=== PATIENT | male | born 1960 | race Caucasian/White ===

== ENCOUNTER 2020-05-14 00:45 | Outpatient (CLI) | payer MEDICAID, SELFPAY ==
--- NOTE | 2020-05-14 07:37 | DI.MRI_ITS ---
EXAM: MR UPPER JOINT RT WO CLINICAL HISTORY: R SHOULDER PAIN, BICIPITAL TENDINITIS, M75.21. TECHNIQUE: Multiplanar multisequence MRI was performed. COMPARISON: MR MRI R UPPER JOINT WO CONT from 01/18/2015 CR RIGHT SHOULDER COMPLETE from 12/27/2015 FINDINGS: There is been a previous distal clavicular resection. A metallic anchor is seen in the anterior hu meral head. There is artifact in this area. The fat-suppressed T2 coronal and sagittal sequences ar e also limited by motion. The biceps tendon appears intact and normally positioned. There is a mini mal amount of fluid in the subacromial subdeltoid bursa. There is a question of high signal in the distal supraspinatus tendon which could indicate a partial tear or tendinitis. The infraspinatus, pagan bscapularis and teres minor tendons are unremarkable. No gross labral defects are seen. IMPRESSION: Limited exam secondary to metallic artifact and patient motion. The biceps tendon appears intact. T here is a question of supraspinatus tendinosis versus partial tear. DATA REPOSITORY:
== END 2020-05-14 01:05 ==
PROVIDERS: PCP Internal Medicine; Visit Provider Orthopaedic Surgery
DX: M25.511 Pain in right shoulder (principal); M75.21 Bicipital tendinitis, right shoulder
CPT/HCPCS: 73221

== ENCOUNTER 2021-05-14 15:04 | Outpatient (CLI) | payer MEDICAID, SELFPAY ==
--- NOTE | 2021-05-14 15:00 | DI.RAD_ITS ---
Exam(s) XR SHOULDER RT COMPLETE 2+V EXAM: XR SHOULDER RT COMPLETE 2+V CLINICAL HISTORY: F/U. TECHNIQUE: 2D digital imaging was performed. COMPARISON: No exams were available for comparison FINDINGS: BONES: No acute fracture is present. No bony destructive lesion is seen. There is an orthopedic anch or in the humeral head. JOINTS: No dislocation present. Degenerative changes are seen at the acromioclavicular joint. SOFT TISSUE: Normal. IMPRESSION: No acute abnormality. DATA REPOSITORY: RADIATION DOSE DELIVERED:
== END 2021-05-14 15:05 | disposition home or self-care (01) ==
LOC: DIORS 15:04
PROVIDERS: PCP Internal Medicine; Referring Provider Internal Medicine; Visit Provider Student in an Organized Health Care Education/Training Program
DX: M75.101 Unspecified rotator cuff tear or rupture of right shoulder, not specified as traumatic (principal)
CPT/HCPCS: 73030

== ENCOUNTER 2021-08-28 01:55 | Outpatient (CLI) | payer MEDICAID, SELFPAY ==
[2021-08-28 13:03] LABS: Source Nasal/Nares
[2021-08-28 23:13] LABS: COVID-19 PCR Negative (Negative)
== END 2021-08-28 01:56 | disposition home or self-care (01) ==
LOC: LBO 01:55
PROVIDERS: PCP Internal Medicine; Visit Provider Student in an Organized Health Care Education/Training Program
DX: Z20.822 Contact with and (suspected) exposure to COVID-19 (principal); Z01.818 Encounter for other preprocedural examination
CPT/HCPCS: 87635

== ENCOUNTER 2021-08-30 09:47 | Day surgery (SDC) | payer MEDICAID, SELFPAY ==
[2021-08-30] VITALS (10 sets, daily range): BP systolic 84–131; BP diastolic 51–81; PULSE 47–62; RESP 15–26; TEMP 36–36.6; O2SAT 92–97; BMI 31.5
--- NOTE | 2021-08-30 06:34 | ANES.PREOP_ITS ---
General Info Date of Service Date Performed: 08/30/21 Height: 5 ft 11 in Weight: 102.512 kg Body Mass Index (BMI): 31.5 Surgical Procedure: Operation Date: 08/30/21 10:10 Proposed Procedures Side Surgeon p shoulder arthroscopy with extensive debridement, subacromial decompression, exc distal clavicle, possible rotator cuff Right Navneet Sneed MD s Shoulder Bicep Tenodesis Right Navneet Sneed MD Meds Allergies and Home Medications Allergies Allergy/AdvReac Type Severity Reaction Status Date / Time codeine AdvReac VISUAL Unverified 08/30/21 10:31 HALLUCINATION/BLACKOUT/DIZZY Home Medication Medication Instructions Recorded lorazepam [Ativan] 0.5 mg PO PRN 04/26/15 ibuprofen 400 mg PO Q4H PRN tab-cap 02/06/16 acetaminophen 1,000 mg PO Q6H PRN 08/30/21 Current Visit Medications: Current Medications Generic Name Dose Route Start Last Admin Trade Name Freq PRN Reason Stop Dose Admin Ringer's Solution 1,000 mls @ 100 mls/hr 08/30/21 06:00 IV 09/28/21 23:59 INFUSION RY Cefazolin Sodium/Dextrose 2 gm in 50 mls @ 100 mls/hr 08/30/21 06:00 Ancef Duplex IVPB 08/30/21 16:00 PREOP RY IV Miscellaneous Supplies 1 each 08/30/21 06:00 Iv Access IV 09/28/21 23:59 DIRECTED RY Sodium Chloride 0 ml 08/30/21 06:00 Normal Saline Flush 10 Ml Syr IV 09/28/21 23:59 PRN PRN Sodium Chloride 0 ml 08/30/21 06:00 Normal Saline 10 Ml Vial IJ 09/28/21 23:59 DIRECTED PRN Sterile Water 0 ml 08/30/21 06:00 Water,Injection,Sterile 10 Ml Vial IJ 09/28/21 23:59 DIRECTED PRN PFSH Active Problems Active Problems: Problem Status Onset Code Lateral epicondylitis of right elbow M77.11 Carpal tunnel syndrome of right wrist G56.01 Tendonitis of long head of biceps brachii of right shoulder M75.21 Bursitis of right shoulder M75.51 No-show for appointment Z53.29 Rotator cuff tear, right M75.101 Medical History Medical History Hypertension Surgical History Surgical History (Updated 08/30/21 @ 10:35 by Jahaira Beasley RN) Hx of hernia repair x2 Hx of neck surgery goiter Hx of shoulder surgery b/l x 1 each so far Tobacco Smoking/Tobacco Use Status: Former Tobacco Use Alcohol Alcohol Intake: current Alcohol intake frequency: a few times a month Substance Use Substance use: Never Vital Signs and Lab Results Vital Signs Most Recent Vital Signs in EMR: Temp Pulse Resp BP Pulse Ox 36.6 C 47 L 18 131/81 96 08/30/21 10:22 08/30/21 10:22 08/30/21 10:22 08/30/21 10:22 08/30/21 10:22 Lab Results Blood Type / Crossmatch: No Data to Display Complete Blood Count: No Data to Display Complete Metabolic Panel: No Data to Display Liver Function Panel: No Data to Display Coagulation Panel: No Data to Display Cardiac Panel: No Data to Display Arterial Blood Gas: No Data to Display Venous Blood Gas: No Data to Display Pancreas Panel: No Data to Display Thyroid Panel: No Data to Display Infectious Disease: Coronavirus (COVID-19)(PCR) Negative (Negative) 08/28/21 11:26 08/28/21 Coronavirus 2019 Source Nasal/Nares 08/28/21 11:26 08/28/21 Blood Cultures: No Data to Display Toxicology Panel: No Data to Display Anesthesia Assessment and Plan Anesthesia History Personal History: No History of Anesthesia Complications Family History: No Family History of Anesthesia Complications Exercise Tolerance Exercise Tolerance: Metabolic Equivalents>4 Cardiac & Pulmonary Exam Cardiac Exam: Normal S1/S2 Heart Sounds Pulmonary Exam: Clear Bilateral Breath Sounds Airway Exam Known Difficult Airway: No Mallampati Class: 2 Mouth Opening: Narrow (< 3cm) Thyromental Distance: Greater than 3 cm Neck Range of Motion: Limited ROM Neck Circumference: Normal Teeth Condition: Normal Dentition ASA Classification ASA Score: ASA 2 Emergency Case?: No NPO Status NPO Status: NPO Clears >2 hours, Solids >8 hours Anesthesia Plan Resuscitation Status: Full Code Anesthesia Technique: General Anesthesia Airway Planned: Endotracheal Tube Pain Management: Surgeon and patient request nerve block Monitors Used: Standard Monitors Preoperative Comments:: 61 yo male for right shoulder scope. Sig PMHx: former smoker, occ EtOH, HTN (amlodipine/metoprolol),catap krishan/narcolepsy. Previous anes: LMA 5, ISB without issues. Plan: [facility].
[2021-08-30] MEDS: Lactated Ringers 1,000 ML 100 ML IV (10:36)
[2021-08-30] MEDS: ceFAZolin 2 GM/50 ML BAG IVPB (11:42)
--- NOTE | 2021-08-30 11:43 | W.ANESNERVE ---
Nerve Block Single Injection Procedure Date and Time Date Performed: 08/30/21 Procedure Start: 10:55 Location Where Procedure Performed Procedure Location: Day Surgery Unit Reason Performed: Postoperative Analgesia Requesting Provider: Navneet Sneed Timeout Performed Timeout Performed: Yes Monitoring Used ECG, Blood Pressure and SpO2 Sterility Sterility: Hand Hygiene, Surgical Cap, Surgical Mask and Sterile Drape/Sheet Sedation Given During Procedure Sedation Given (Indicate Dose Given): No Sedation given and Versed IV Dose:: 2 mg Patient Mental Status Patient Mental Status: Awake Nerve Block 1st Nerve Block: Laterality: Right Block Type: Interscalene Needle / Catheter Used: 100mm SonoPlex II Local Anesthetic Bolus (Indicate Dose Given): Injected in 3-5ml increments after negative blood aspiration, Bupivacaine 0.5% Dose:: 12 mL and Exparel Dose:: 10 mL Additives (Indicate Dose Given): None Ultrasound: Sterile probe cover and gel used Ultrasound Image Saved?: Yes Nerve Stimulator: Not Used Paresthesia: None Procedure Tolerated: No Complications Procedure Outcome: Successful Procedure Comment: complicated anatomy, very vascular on path to IS groove, negative aspiration throughout. Performed By: Sree Cummings
[2021-08-30] MEDS: EPINEPHrine 30 MG/30 ML VIAL (13:00)
--- NOTE | 2021-08-30 13:26 | W.PM.DSUDISC ---
Discharge Plan Disposition Patient Disposition: HOME Condition: Stable Discharge Details Reason For Visit: Right shoulder surgery Attending Provider: Navneet Sneed Primary Care Provider: Laura Fajardo Home Meds and New Rx's Prescriptions: New aspirin 81 mg tablet,delayed release (DR/EC) 81 mg PO DAILY 14 Days Qty: 14 RF: 0 naproxen 250 mg tablet 250 - 500 mg PO BID PRN (Reason: Moderate pain or swelling) Qty: 40 RF: 0 oxycodone 5 mg tablet 5 - 10 mg PO Q4H PRN (Reason: moderate to severe pain) Qty: 16 RF: 0 Continued lorazepam [Ativan] 0.5 MG tablet 0.5 mg PO PRN RF: 0 ibuprofen 200 MG capsule 400 mg PO Q4H PRN RF: 0 acetaminophen 500 mg Tablet 1,000 mg PO Q6H PRNRF: 0 Discharge Instructions Additional Instructions: Surgery: Right shoulder arthroscopy with revision extensive debridement, subacromial decompression, and distal clavicle excision. Activity: You should gradually increase range of motion motion and use of your shoulder. Please perform daily motion exercises. You may use your shoulder for all regular activities. Avoid heavy lifting, reaching overhead, and lifting away from body for approximately 6 to 8 weeks. You may use the sling whenever you are out of the house for a few weeks. At home it is best to remove the sling and rest the arm on a pillow at your side or support the operative side with your other hand. A physical therapy prescription will be sent electronically to start in about 2 weeks. Prescriptions: Aspirin 81 mg take 1 daily to prevent a blood clot for 2 weeks Naproxen 250 mg take 1-2 every 12 hours with a meal as needed for moderate pain Oxycodone 5 mg take 1-2 every 4-6 hours as needed for severe pain You may use [id number] Tylenol (acetaminophen) as needed for mild pain. These pain medications may be taken all at once or in different combinations as needed. Also, recommend Colace (docusate) as a stool softener as surgery and pain medicine cause constipation. Dressings: Remove shoulder bandage after 3 days. Leave the sticky Steri-Strips in place until they fall off or remove them after you shower. Cover the incisions with Band-Aids or leave them open to air. You may shower after 5 days. Follow-up: 10-[address] Sneed You may take off the leg compression stockings this evening at home. You may also leave them on a few days longer if you have a history of leg swelling or edema. Let us know right away if you develop any redness, drainage, fevers, chest pain, or trouble breathing. Do not drink alcohol or drive for at least 24 hours after anesthesia. Please call the office during business hours with any questions or concerns. Referrals: Navneet Sneed MD [ [facility]FF PHYSICIAN] - DS: Diagnosis Discharge Diagnosis (1) Bursitis of right shoulder: Status: Acute (2) Tendonitis of long head of biceps brachii of right shoulder: Status: Acute (3) AC joint pain: Status: Acute (4) Rotator cuff tear, right: Status: Acute
--- NOTE | 2021-08-30 13:30 | ROE_ITS ---
Date of service: 08/30/21 Time of Service: 12:00 Operative Note Operative Note DATE OF PROCEDURE: 08/30/21 PRE-OP DIAGNOSIS: Right: 1. Rotator cuff tear 2. LHB tendinopathy 3. Bursitis 4. AC joint pain POST-OP DIAGNOSIS: same PROCEDURE: Right 1. Extensive debridement, CPT# 95361. This involved using arthroscopic hand instruments, power instruments, and radiofrequency instruments to debride SLAP tear, anterior and posterior partial labral tearing, partial articular supraspinatus rotator cuff tearing, chondromalacia about the bicipital groove, and anterior capsule synovitis. 2. Arthroscopic distal clavicle excision, CPT# 34480. This involved arthroscopically exposing the underside of the acromioclavicular joint, smoothing out bone spurs, and removing few millimeters of the acromion there was no significant impinging or engaging bone. 3. Subacromial decompression, CPT# 89607. This involved using arthroscopic power instruments and a radiofrequency wand to complete a bursectomy. The hygiene assistant was medically required in order to help assist in techniques above, which require positioning the arm, holding the arthroscope, and manipulating multiple instruments and sutures at the same time. This cannot be done without the help of an experienced hygiene assistant. SURGEON: Navneet Sneed PROTOTYPE ENGINEER: Leanne Kidd ANESTHESIA TYPE: General LMA/ETT and Primary Nerve Block Refer to Anesthesia Record ESTIMATED BLOOD LOSS: 5 PATHOLOGY: none sent COMPLICATIONS: None Patient was transported to: PACU Patient's condition: stable Implants: None Indications: The patient was diagnosed with the above conditions and appropriately indicated for surgical intervention. Please see complete medical record for details. Findings: Exam under anesthesia: Full, symmetrical range of motion. No instability or mechanical symptoms. Glenohumeral joint: Mild anterior posterior synovitis. Long head biceps previously tenodesed with no visible intra-articular segment. No significant stump or biceps anchor on superior labrum. SLAP tear with unstable superior labrum. Mild anterior posterior labral fraying. Mild anterior near bicipital groove chondromalacia. Intact subscapularis. Mild partial articular sided supraspinatus rotator cuff tear. Intact infraspinatus. No loose bodies. No significant capsular contracture. Subacromial space: Mild bursitis. No significant undersurface acromial bone spur. Minimal engaging proximal acromion on distal clavicle. No significant residual distal clavicle. Moderate AC joint hemorrhagic scar tissue. Mild but diffuse diffuse bursal fraying without any significant bursal rotator cuff tear. Procedure Description: In the operating room, general anesthesia was induced. Bilateral shoulders were examined. The patient was positioned in the beachchair position. All bony prominences were well-padded. Preoperative antibiotics were administered. The shoulder was prepped and draped in the usual sterile fashion. The correct patient, procedure, and side of the procedure were all verified prior to incision. Starting through the posterior portal a standard complete diagnostic arthroscopy was performed of the glenohumeral joint including inspection of the long head of the biceps, anterior and superior labrum, subscapularis tendon, supraspinatus and infraspinatus tendons, and axillary recess. The glenoid and humeral head cartilage as well as the posterior labrum were inspected from an anterior viewing portal. Significant findings and interventions noted above. An extensive debridement was done as noted above working from anterior and posterior involving mild pathology that multiple sites and different tissues, but there was no significant glenohumeral joint pathology. There is no overly pathologic tissue worth sampling in case of indolent P acnes infection. The posterior portal was redirected subacromial space. There is only mild bursitis so the lateral 50 yard line portal was omitted. The anterior portal was redirected at the subacromial space near the AC joint. Power and radiofrequency instruments were used to complete a bursectomy and expose the undersurface acromion. There was no significant undersurface acromial bone spur laterally to removed. The coracoacromial ligament was preserved. The AC joint had residual moderate hemorrhagic scarring. This was carefully dissected exposing the prior open distal clavicle excision site. There was no significant remnant or regrowth of the distal clavicle. The adjacent acromion however had a sharp inferior engaging angle on soft tissues including rotator cuff so it was cleared of soft tissue and the mechanical shaver was used to resect and smooth the margin of this bone. The probe was then brought in anteriorly to confirm there is no engaging distal clavicle on acromion. The probe was then used to inspect the rotator cuff, which had diffuse fraying but only mildly involving the bursal surface. The rotator cuff demonstrated excellent trampoline. This diffuse fraying was then removed with the mechanical shaver and the bursectomy extended anterior laterally posteriorly to fully inspect the rotator cuff and confirm there was no significant tearing. Given the significance of pain and no traumatic structural injury found, the shoulder was copiously irrigated with 6 L of normal saline following this glenohumeral and subacromial debridement to potential remove any chance of infectious or inflammatory residual fluid. The shoulder was drained of arthroscopic fluid. Full portal sites were copiously irrigated. These incisions were closed using 3-0 Monocryl in a buried fashion and then covered with Mastisol, Steri-Strips, Xeroform, dry gauze, and ABDs. The dressings were covered and secured with Medipore tape. The operative extremity was placed into a sling for immobilization. The patient awoke from anesthesia without complication and was transferred to the recovery room in a stable condition.
--- NOTE | 2021-08-30 14:15 | W.ANESPOSTOP ---
Postoperative Evaluation Date, Time and Location Date Performed: 08/30/21 Time Performed: 14:15 Patient Location: PACU Vital Signs Most Recent Imported Vital Signs: Most Recent Vital Signs Temp Pulse Resp BP Pulse Ox 36.1 C L 60 19 97/63 L 95 08/30/21 14:10 08/30/21 14:10 08/30/21 14:10 08/30/21 14:10 08/30/21 14:10 Pain Score Most Recent Pain Score: Most Recent Pain Score Pain Level 0 08/30/21 13:40 Assessment Mental Status: Awake (Alert & Oriented to Patient Baseline) Airway and Respiratory Function: Patent airway with normal (patient baseline) respiratory exam Cardiovascular Function: Hemodynamically Stable Hydration Status: Adequately Hydrated Nausea & Vomiting: No Nausea or Vomiting Pain: Pain is tolerable per patient Peripheral Nerve Block: Regional nerve block not resolved at time of post operative discharge
== END 2021-08-30 09:48 | disposition home or self-care (01) ==
PROVIDERS: PCP Internal Medicine; Visit Provider Student in an Organized Health Care Education/Training Program
PROC: (CPT 29827; principal; 2021-08-30 10:00)
DX: M75.51 Bursitis of right shoulder (principal); M75.21 Bicipital tendinitis, right shoulder; M75.101 Unspecified rotator cuff tear or rupture of right shoulder, not specified as traumatic; I10 Essential (primary) hypertension
CPT/HCPCS: 29823; 29824; 29826; J0690; J1100; J2001; J2250; J2370; J2405; J2704